=== PATIENT | female | born 1995 | race Caucasian/White ===

== ENCOUNTER 2020-01-05 04:15 | Day surgery (SDC) | payer OTHER ==
[2020-01-03 10:07] VITALS: BMI 18.8
[2020-01-05] MEDS ORDERED: methylPREDNISolone ACET (DEPO) 40 MG/1 ML VIAL ONE (07:18)
[2020-01-05] MEDS ORDERED: DEXAMETHASONE SOD PHOSPHATE 4 MG/1 ML VIAL ONE (07:18)
[2020-01-05] MEDS ORDERED: LIDOCAINE HCL 1%, 10 MG/ML (20ML VIAL) ONE (07:18)
[2020-01-05] MEDS ORDERED: BUPIVACAINE HCL/PF 0.25% (2.5MG/ML) 10 ML VIAL ONE (07:19)
[2020-01-05] MEDS ORDERED: BETAMET ACET/BETAMET NA PH 30 MG/5 ML VIAL ONE (07:19)
[2020-01-05] MEDS ORDERED: BUPIVACAINE HCL 50 ML ONE (07:19)
--- NOTE | 2020-01-05 09:06 | PROC ---
Procedure Note Procedure: Pre procedure Diagnosis: Lumbar Radiculopathy Post Procedure Diagnosis: same Anesthesia: Local Procedure Performed: Right L5 and S1 Transforaminal Epidural Steroid Injection After the risks and benefits were explained, informed consent was obtained. The patient was then taken to the procedure room and positioned prone on the procedure table. Time out was performed. The region overlying the Right L5 and S1 neural foramens were identified using fluoroscopy. The skin was prepped and draped in the usual sterile fashion. The skin and soft tissues were anesthetized using 1% lidocaine. The neural foramens were identified with the fluoroscopic beam directed in a right oblique direction. 2 22 gauge 3.5 inch spinal needles were then introduced into the appropriate neural foramens using intermittent fluoroscopic guidance using AP, oblique and lateral views as indicated. Needle placement was then confirmed with the injection of Omnipaque 180. Epidural flow was noted and the nerve root was outlined. No vascular uptake was noted. Next, a mixture 1.5 cc of dexamethasone and Normal saline followed by 0.5 cc of 1% lidocaine was then injected around the Right L4 and L5 spinal nerves. The patient tolerated the procedure well and there were no complications. The patient was taken to the post procedure recovery area in good condition. Vital signs remained stable before, during, and after the procedure. The patient was given oral and written follow-up instructions. The patient was given a follow up appointment with me in the near future. Derek Hill DO I
[2020-01-05] MEDS ORDERED: LIDOCAINE HCL/PF 1% SDV 5ML VIAL ONE ×2 (10:02→10:06)
[2020-01-05] MEDS ORDERED: BUPIVACAINE HCL/PF 0.75% 10 ML VIAL ONE (10:02)
[2020-01-05] MEDS ORDERED: LIDOCAINE HCL 1% PRESERVATIVE FREE - 30ML VIAL IJ ONE (10:07)
[2020-01-05] MEDS ORDERED: DEXAMETHASONE SOD PHOSPHATE 4 MG/1 ML VIAL IVPUSH ONE (10:07)
[2020-01-05] MEDS ORDERED: IOHEXOL 180 MG/1 ML ML IJ ONE (10:07)
[2020-01-05 10:32] VITALS: TEMP 98
[2020-01-05 11:56] VITALS: BP 121/77; PULSE 77
== END 2020-01-05 10:50 | disposition home or self-care (01) ==
LOC: JASU-SURG 04:15
PROVIDERS: ATTEND Pain Medicine Pain Medicine
PROC: 3E0R33Z Introduction of Anti-inflammatory into Spinal Canal, Percutaneous Approach (ICD-10-PCS; 2020-01-05)
PROC: 3E0R3BZ Introduction of Anesthetic Agent into Spinal Canal, Percutaneous Approach (ICD-10-PCS; principal; 2020-01-05 09:30)
DX: M54.16 Radiculopathy, lumbar region (principal)
CPT/HCPCS: 76000-TC-FY; 84703

== ENCOUNTER 2020-01-19 04:16 | Day surgery (SDC) | payer OTHER ==
[2020-01-16 17:30] VITALS: BMI 18.8
[~2020-01-19 04:16] MED LIST: DEXAMETHASONE SOD PHOSPHATE 10 MG/1 ML VIAL IVPUSH ONE; IOHEXOL 180 MG/1 ML ML IJ ONE; LIDOCAINE HCL 1% PRESERVATIVE FREE - 30ML VIAL IJ ONE
[2020-01-19] MEDS ORDERED: LIDOCAINE HCL 1%, 10 MG/ML (20ML VIAL) ONE (07:29)
[2020-01-19] MEDS ORDERED: TRIAMCINOLONE ACET 40MG/1ML VIAL ONE (07:29)
[2020-01-19] MEDS ORDERED: BUPIVACAINE HCL 50 ML ONE (07:29)
[2020-01-19] MEDS ORDERED: LIDOCAINE HCL 2% (20ML MULTI-DOSE VIAL) ONE (07:29)
[2020-01-19] MEDS ORDERED: BUPIVACAINE HCL/PF 0.25% (2.5MG/ML) 10 ML VIAL ONE (07:29)
[2020-01-19] MEDS ORDERED: BUPIVACAINE HCL/PF 0.75% 10 ML VIAL ONE (07:29)
[2020-01-19] MEDS ORDERED: DEXAMETHASONE SOD PHOSPHATE/PF 10 MG/ML SDV ONE (09:21)
--- NOTE | 2020-01-19 10:12 | PROC ---
Procedure Note Procedure: Pre procedure Diagnosis: Lumbar Radiculopathy Post Procedure Diagnosis: same Anesthesia: Local Procedure Performed: Right L5 and S1 Transforaminal Epidural Steroid Injection After the risks and benefits were explained, informed consent was obtained. The patient was then taken to the procedure room and positioned prone on the procedure table. Time out was performed. The region overlying the Right L5 and S1 neural foramens were identified using fluoroscopy. The skin was prepped and draped in the usual sterile fashion. The skin and soft tissues were anesthetized using 1% lidocaine. The neural foramens were identified with the fluoroscopic beam directed in a right oblique direction. 2 22 gauge 5 inch spinal needles were then introduced into the appropriate neural foramens using intermittent fluoroscopic guidance using AP, oblique and lateral views as indicated. Needle placement was then confirmed with the injection of Omnipaque 180. Epidural flow was noted and the nerve root was outlined. No vascular uptake was noted. Next, a mixture 1.5 cc of dexamethasone and Normal saline followed by 0.5 cc of 1% lidocaine was then injected around the Right L5 and S1 spinal nerves. The patient tolerated the procedure well and there were no complications. The patient was taken to the post procedure recovery area in good condition. Vital signs remained stable before, during, and after the procedure. The patient was given oral and written follow-up instructions. The patient was given a follow up appointment with me in the near future. Derek Hill DO
[2020-01-19] MEDS ORDERED: LIDOCAINE HCL/PF 1% SDV 5ML VIAL ONE (10:23)
[2020-01-19] MEDS ORDERED: IOHEXOL 180 MG/1 ML ML IJ ONE (10:23)
[2020-01-19] MEDS ORDERED: LIDOCAINE HCL 1% PRESERVATIVE FREE - 30ML VIAL IJ ONE (10:25)
[2020-01-19] MEDS ORDERED: DEXAMETHASONE SOD PHOSPHATE 10 MG/1 ML VIAL IVPUSH ONE (10:29)
[2020-01-19 11:35] VITALS: BP 104/62; PULSE 57; TEMP 97.5
== END 2020-01-19 11:45 | disposition home or self-care (01) ==
LOC: JASU-SURG 04:16
PROVIDERS: ATTEND Pain Medicine Pain Medicine
PROC: 3E0R33Z Introduction of Anti-inflammatory into Spinal Canal, Percutaneous Approach (ICD-10-PCS; 2020-01-19)
PROC: 3E0R3BZ Introduction of Anesthetic Agent into Spinal Canal, Percutaneous Approach (ICD-10-PCS; principal; 2020-01-19 09:00)
DX: M54.16 Radiculopathy, lumbar region (principal)
CPT/HCPCS: 76000-TC-FY; 84703; J1100

== ENCOUNTER 2020-07-07 17:19 | Emergency (ER) | payer OTHER ==
[2020-07-07 17:44] VITALS: BP 125/77; PULSE 97; TEMP 98; BMI 18.8
== END 2020-07-07 18:40 | disposition home or self-care (01) ==
LOC: JERFT 17:19
DX: K13.0 Diseases of lips (principal)
CPT/HCPCS: 99282-25

== ENCOUNTER 2020-08-02 05:21 | Day surgery (SDC) | payer OTHER ==
[2020-07-31 19:35] VITALS: BMI 18.3
[2020-08-02] MEDS ORDERED: IOHEXOL 180 MG/1 ML ML IJ ONE (13:05)
[2020-08-02] MEDS ORDERED: LIDOCAINE HCL 1% PRESERVATIVE FREE - 30ML VIAL IJ ONE (13:05)
[2020-08-02 13:52] VITALS: BP 137/83; PULSE 86; TEMP 99.2
[2020-08-02] MEDS ORDERED: LIDOCAINE HCL/PF 1% SDV 5ML VIAL ONE (15:47)
[2020-08-02] MEDS ORDERED: DEXAMETHASONE SOD PHOSPHATE 4 MG/1 ML VIAL ONE (15:47)
== END 2020-08-02 13:50 | disposition home or self-care (01) ==
LOC: JASU-SURG 05:21
PROVIDERS: ATTEND Pain Medicine Pain Medicine
PROC: 3E0R33Z Introduction of Anti-inflammatory into Spinal Canal, Percutaneous Approach (ICD-10-PCS; 2020-08-02)
PROC: 3E0R3BZ Introduction of Anesthetic Agent into Spinal Canal, Percutaneous Approach (ICD-10-PCS; principal; 2020-08-02 11:30)
DX: M54.16 Radiculopathy, lumbar region (principal)
CPT/HCPCS: 76000-TC-FY; 81025

== ENCOUNTER 2021-08-05 21:24 | Emergency (ER) | payer OTHER ==
[2021-08-05 21:36] VITALS: BP 111/62; PULSE 88; TEMP 97.8; BMI 19.3
[2021-08-05] MEDS ORDERED: hydrOXYzine PAMOATE 25 MG CAPSULE (FP) PO ONE ×2 (22:07→22:09)
== END 2021-08-05 23:11 | disposition home or self-care (01) ==
LOC: JER 21:24
DX: R07.0 Pain in throat (principal)
CPT/HCPCS: 70360-TC-FY; 71046-TC-FY; 99284-25

== ENCOUNTER 2021-09-29 20:01 | Emergency (ER) | payer OTHER ==
[2021-09-29 20:14] VITALS: BP 108/61; PULSE 88; TEMP 98.1; BMI 18.3
[2021-09-29] MEDS ORDERED: ACETAMINOPHEN 500 MG TABLET (FP) PO ONE (21:18)
[2021-09-29] MEDS ORDERED: ACETAMINOPHEN 500 MG TABLET (FP) ONE (21:29)
== END 2021-09-29 22:01 | disposition home or self-care (01) ==
LOC: JERFT 20:01
DX: M25.571 Pain in right ankle and joints of right foot (principal)
CPT/HCPCS: 73610-TC-RT-FY; 73630-TC-RT-FY; 99283-25

== ENCOUNTER 2022-06-07 10:26 | Emergency (ER) | payer OTHER ==
[2022-06-07 10:30] VITALS: BP 114/76; PULSE 99; RESP 18; TEMP 98
== END 2022-06-07 11:43 | disposition home or self-care (01) ==
LOC: JERFT 10:26
DX: M79.671 Pain in right foot (principal)
CPT/HCPCS: 73630-TC-RT-FY; 99283-25

== ENCOUNTER 2022-09-03 17:45 | Emergency (ER) | payer OTHER ==
[2022-09-03 17:53] VITALS: BP 125/77; PULSE 90; RESP 17; TEMP 97.6
[2022-09-03] MEDS ORDERED: IBUPROFEN 600 MG TABLET (FP) PO ONE ×2 (20:30→20:31)
[2022-09-03 21:02] LABS: BASO % 1.2 % (0-2.0); EOS % 0.6 % (0-4.5); HEMOGLOBIN 12.6 GM/dL (10.7-15.3); LYMPH % 32.8 % (8-40); MCH 29.5 pg (25.7-33.7); MCHC 34.1 g/dl (32.0-36.0); MEAN CELL VOLUME 86.7 fl (80-96); MEAN PLT VOLUME 8.3 fl (7.5-11.1); MONO % 8.5 % (3.8-10.2); NEUT % 56.9 % (42.8-82.8); PLATELET COUNT 234 10^3/uL (134-434); RBC 4.26 M/mm3 (3.60-5.2); RDW 12.9 % (11.6-15.6); WHITE BLOOD COUNT 6.5 K/mm3 (4.0-10.0)
[2022-09-03 21:25] LABS: CALCIUM 9.2 mg/dL (8.5-10.1)
[2022-09-03 21:26] LABS: ALBUMIN 4.3 g/dl (3.4-5.0); BLOOD UREA NITROGEN 12.8 mg/dL (7-18)
[2022-09-03 21:29] LABS: CREATININE 0.8 mg/dL (0.55-1.3)
[2022-09-03 21:30] LABS: BILIRUBIN,TOTAL 0.4 mg/dL (0.2-1); TOT PROT 7.5 g/dl (6.4-8.2)
== END 2022-09-03 22:18 | disposition home or self-care (01) ==
LOC: JERFT 17:45 → JER 17:45 → JERFT 22:18
DX: M54.2 Cervicalgia (principal); E04.1 Nontoxic single thyroid nodule; F17.210 Nicotine dependence, cigarettes, uncomplicated
CPT/HCPCS: 36415; 76536-TC; 80053; 84436; 84443; 85025; 87651; 99284-25

== ENCOUNTER 2023-05-02 23:36 | Emergency (ER) | payer OTHER ==
[2023-05-02 23:47] VITALS: TEMP 98.3; BMI 22.6
[2023-05-03] MEDS ORDERED: CLINDAMYCIN HCL 300 MG CAPSULE PO ONE (01:42)
[2023-05-03] MEDS ORDERED: metroNIDAZOLE 250 MG TABLET PO ONE (01:43)
[2023-05-03] MEDS ORDERED: CLINDAMYCIN HCL 150 MG CAPSULE (FP) ONE (01:51)
[2023-05-03] MEDS ORDERED: metroNIDAZOLE 250 MG TABLET ONE (01:51)
[2023-05-03 02:09] LABS: BASO % 0.8 % (0-2.0); EOS % 0.8 % (0-4.5); HEMATOCRIT 38.7 % (32.4-45.2); HEMOGLOBIN 12.6 GM/dL (10.7-15.3); LYMPH % 31.7 % (8-40); MCH 28.3 pg (25.7-33.7); MCHC 32.6 g/dl (32.0-36.0); MEAN CELL VOLUME 86.8 fl (80-96); MONO % 7.2 % (3.8-10.2); NEUT % 59.5 % (42.8-82.8); PLATELET COUNT 251 10^3/uL (134-434); RBC 4.46 M/mm3 (3.60-5.2); RDW 12.8 % (11.6-15.6); WHITE BLOOD COUNT 6.8 K/mm3 (4.0-10.0)
[2023-05-03 02:28] LABS: POTASSIUM 3.8 mmol/L (3.5-5.1)
[2023-05-03 02:30] LABS: CALCIUM 9.7 mg/dL (8.5-10.1)
[2023-05-03 02:31] LABS: ALBUMIN 4.5 g/dl (3.4-5.0); BLOOD UREA NITROGEN 13.6 mg/dL (7-18)
[2023-05-03 02:34] LABS: CREATININE 0.7 mg/dL (0.55-1.3)
[2023-05-03 02:35] LABS: BILIRUBIN,TOTAL 0.6 mg/dL (0.2-1)
[2023-05-03 02:36] LABS: TOT PROT 7.5 g/dl (6.4-8.2)
[2023-05-03 04:12] LABS: THROAT:GRP A STREP NOT DETECTED (NOTDETECTED)
[2023-05-03 05:11] VITALS: BP 110/65; PULSE 73; RESP 18
== END 2023-05-03 05:13 | disposition home or self-care (01) ==
LOC: JER 23:36
DX: F41.9 Anxiety disorder, unspecified (principal); R68.84 Jaw pain; M26.12 Other jaw asymmetry; Z20.822 Contact with and (suspected) exposure to COVID-19
CPT/HCPCS: 0241U-QW; 36415; 70487-TC; 70491-TC; 80053; 84703; 85025; 87651; 99285-25; Q9967

== ENCOUNTER 2023-09-20 13:57 | Emergency (ER) | payer OTHER ==
[2023-09-20 14:05] VITALS: BP 120/69; PULSE 72; RESP 16; TEMP 98.7; BMI 21.4
== END 2023-09-20 14:55 | disposition home or self-care (01) ==
LOC: JERFT 13:57
DX: N64.89 Other specified disorders of breast (principal)
CPT/HCPCS: 99282-25

== ENCOUNTER 2025-01-12 15:10 | Emergency (ER) | payer BC ==
[2025-01-12 15:25] VITALS: RESP 18
[2025-01-12] MEDS ORDERED: FAMOTIDINE 20 MG TABLET ONE (16:17)
[2025-01-12] MEDS ORDERED: ACETAMINOPHEN 325 MG TABLET (FP) ONE (16:17)
[2025-01-12] MEDS ORDERED: MAG HYDROX/AL HYDROX/SIMETH 30 ML UNIT-DOSE CUP ONE (16:18)
[2025-01-12] MEDS: MAG HYDROX/AL HYDROX/SIMETH 30 ML UNIT-DOSE CUP PO ONE (16:25)
[2025-01-12] MEDS: FAMOTIDINE 20 MG TABLET PO ONE (16:25)
[2025-01-12] MEDS: ACETAMINOPHEN 325 MG TABLET (FP) PO ONE (16:27)
[2025-01-12] MEDS ORDERED: hydrOXYzine PAMOATE 25 MG CAPSULE (FP) PO ONE (16:31)
[2025-01-12] MEDS: hydrOXYzine PAMOATE 25 MG CAPSULE (FP) PO ONE (16:53)
[2025-01-12 17:03] LABS: ABSOLUTE IMMATURE GRANULOCYTES 0.02 x10^3/uL (0.0-0.031); BASOPHILS # 0.06 x10^3/uL (0.01-0.08); EOSINOPHIL % 0.3 % (0.7-5.8); EOSINOPHILS # 0.02 x10^3/uL (0.04-0.36); MCHC 31.5 g/dl (32.2-35.5); MEAN CELL VOLUME 91.1 fl (79.4-94.8); MEAN PLT VOLUME 10.2 fl (9.4-12.3); MONOCYTE # 0.41 x10^3/uL (0.24-0.86); MONOCYTE % 6.7 % (4.7-12.5); RDW 12.8 % (12.1-16.8)
[2025-01-12 17:20] LABS: GLUCOSE,RANDOM 83.0 mg/dL (74-106); TOT PROT 8.4 g/dl (6.4-8.2)
[2025-01-12 17:22] LABS: CO2 27.0 mmol/L (21-32)
[2025-01-12 17:23] LABS: ALK PHOS 47.0 U/L (40-150)
[2025-01-12 17:26] LABS: CREATININE 0.69 mg/dL (0.55-1.3); SGOT/AST 20.0 U/L (5-34); SGPT/ALT 15.0 U/L (0-55)
[2025-01-12 17:53] LABS: HIV INTERPRETATION NEGATIVE (NEGATIVE)
[2025-01-12 17:54] LABS: HCV DIAGNOSTIC IN-HOUSE W/RFLX NON-REACTIVE (NONREACTIVE)
[2025-01-12 19:02] VITALS: BP 122/75; PULSE 67; TEMP 98.3
== END 2025-01-12 18:45 | disposition home or self-care (01) ==
LOC: JER 15:10
DX: R10.13 Epigastric pain (principal); G89.29 Other chronic pain; R00.2 Palpitations; F41.9 Anxiety disorder, unspecified
CPT/HCPCS: 36415; 80053; 83690; 83735; 84439; 84443; 84484; 84703; 85025; 86803; 87389; 93005; 93010; 99284-25